=== PATIENT | female | born 1960 | race Caucasian/White ===

== ENCOUNTER 2019-05-07 10:40 | Inpatient (IN) ==
[2019-05-07] MEDS ORDERED: SODIUM CHLORIDE 0.9% 1000ML 1,000 ML IV ONE (11:14)
[2019-05-07] MEDS ORDERED: ALBUT/IPRATROP 3MG/0.5MG NEB 3 ML VIAL NEB STA (11:14)
[2019-05-07] MEDS ORDERED: cefTRIAXone SODIUM 2,000 MG/70 ML BAG IV STA (11:14)
[2019-05-07] MEDS ORDERED: DOXYCYCLINE HYCLATE 100 MG in DEXTROSE 5% 100 ML IV STA (11:22)
[2019-05-07 11:55] LABS: Basophils # (auto) 0.04 K/uL (0-0.2); Basophils % (auto) 0.2 %; Eosinophils # (auto) 0.27 K/uL (0-0.5); Eosinophils % (auto) 1.6 %; Hematocrit (blood only) 33.7 % (37-47); Hemoglobin 11.4 g/dL (12.0-16.0); Immature Granulocytes # (auto) 0.32 K/uL (0.00-0.02); Immature Granulocytes % (auto) 1.9 %; Lymphocytes # (auto) 2.21 K/uL (1.2-3.4); Lymphocytes % (auto) 13.1 %; Mean Corpuscular Hemoglobin 33.5 pg (25-34); Mean Corpuscular Hgb Conc 33.8 g/dL (32-36); Mean Corpuscular Volume 99.1 fL (80-100); Mean Platelet Volume 9.4 fL (7.4-10.4); Monocytes # (auto) 0.78 K/uL (0.11-0.59); Monocytes % (auto) 4.6 %; Neutrophils # (auto) 13.31 K/uL (1.4-6.5); Neutrophils % (auto) 78.6 %; Platelet Count 361 K/uL (130-400); RDW Coefficient of Variation 14.2 % (11.5-14.5); RDW Standard Deviation 51.3 fL (36.4-46.3); White Blood Count 16.93 K/uL (4.8-10.8)
--- NOTE | 2019-05-07 12:07 | Emergency Department Note ---
History of Present Illness General Chief Complaint: Illness Stated Complaint: SOB,COUGHING MUCUS Source: patient Mode of arrival: ambulatory Limitations: no limitations History of Present Illness Provider Complaint: shortness of breath and cough Onset (ago): week(s) (2) Severity: moderate Consistency/Duration: + constant Relieved By: + nothing Exacerbated By: + lying flat, + exertion, + movement, + coughing and + deep breaths Context: + recent illness and + recent travel Associated symptoms: + denies other symptoms Treatment prior to arrival: oxygen and bronchodilator This 58-year-old female patient presents emergency department today, ambulatory, accompanied by male. Patient states she has been experiencing 2-week long history of dyspnea, cough, decreased energy. She states she was seen by [facility] just prior to arrival and diagnosed with pneumonia. She states she was told the influenza testing was negative. She states she has been short of breath for "quite a while". She is visiting family and is in town from [place]. She denies any fever, and states she did vomit once this morning. She denies any chest pain, abdominal pain, or back pain. She denies any headache, dizziness, nausea, numbness, tingling, weakness, hemoptysis, or other associated symptoms. She was given Solu-Medrol, DuoNeb treatment, and oxygen prior to arrival. She states she has been feeling somewhat better since these medications. She denies any history of similar symptoms. She denies any history of blood clots. Related Data Home oxygen amount: none Home Medications Home Medications Medication Instructions Recorded Confirmed Type Glucosamine Chondroitin Vit D 1 tab PO BID 05/07/19 05/07/19 History loratadine-pseudoephedrine 1 tab PO HS 05/07/19 05/07/19 History [Claritin-D 24 Hour] Allergies Allergy/AdvReac Type Severity Reaction Status Date / Time No Known Allergies Allergy Unverified 05/07/19 11:45 Past Med/Surg History Medical History Allergic rhinitis Social History Preferred Language: Ugandan Feels Safe at Home: Yes Smoking Status: Never smoker Review of Systems A total of 10 systems reviewed and were otherwise negative Physical Exam Vital Signs: Vital Signs - 24 hr 05/07/19 10:48 05/07/19 11:15 05/07/19 12:10 Temperature 36.7 C Temperature Source Oral Pulse Rate 57 L Pulse Rate [Finger ] 55 L Respiratory Rate 22 18 Respiratory Effort / Characteristics Short of Breath Non-Labored Sponta neous Respiratory Depth Respiratory Patter n Blood Pressure 198/119 H Blood Pressure [Le ft Arm] Blood Pressure Sulema n 145 Blood Pressure Sulema n [Left Arm] Blood Pressure Pos ition Sitting Blood Pressure Pos ition [Left Arm] Pulse Oximetry 84 L 97 92 Oxygen Delivery Me thod Room Air Nebulizer Nasal Cannula Oxygen Flow Rate 2 Sepsis Recent Feve r Within 48 Hours No Sepsis New/Unexpla ined Change in Men sindy Status No Sepsis Action Take n by Nursing No Action Required 05/07/19 12:41 Temperature Temperature Source Pulse Rate Pulse Rate [Finger ] 60 Respiratory Rate 20 Respiratory Effort / Characteristics Non-Labored Sponta neous Respiratory Depth Normal Respiratory Patter n Regular Blood Pressure Blood Pressure [Le ft Arm] 182/96 H Blood Pressure Sulema n Blood Pressure Sulema n [Left Arm] 124 Blood Pressure Pos ition Blood Pressure Pos ition [Left Arm] Sitting Pulse Oximetry 93 Oxygen Delivery Me thod Nasal Cannula Oxygen Flow Rate 2 Sepsis Recent Feve r Within 48 Hours Sepsis New/Unexpla ined Change in Men sindy Status Sepsis Action Take n by Nursing Physical Exam: VITALS: Vitals are noted on the nurse's note and reviewed by myself. O2 saturation 84%. Patient was hypertensive and mildly bradycardic. GENERAL: This is a 58-year-old white female, in no acute distress, nond iaphoretic, well-developed well-nourished. SKIN: The skin was without rashes, erythema, edema, or bruising. There is no tenting of the skin. Capillary refill less than 2 seconds. HEAD: Normocephalic atraumatic. EARS: External auditory canals clear, tympanic membranes pearly lyon without erythema or effusion bilaterally. EYES: Pupils equal round and reactive to light and accommodation. Conjunctivae without injection, sclerae without icterus. NOSE: Patent, turbinates without inflammation or discharge. No sinus tenderness. MOUTH: Mucous membranes moist. Tonsils are not enlarged. Pharynx without erythema or exudate. Uvula midline. Airway patent. Tongue does not deviate. NECK: Supple without nuchal rigidity. No lymphadenopathy. HEART: Regular rate and rhythm without murmurs gallops or rubs. LUNGS: Diffuse wheezing and rhonchi throughout. Breath sounds are mildly diminished throughout. No retractions or accessory muscle use. ABDOMEN: Positive bowel sounds x 4. Normal tympanic percussion. Soft, nontender, without masses or organomegaly. Brown sign negative. No guarding or rebound tenderness. MUSCULOSKELETAL: No muscle atrophy, erythema, or edema noted. Full range of motion without joint tenderness in all extremities. No tenderness to palpation. Negative Homans sign bilaterally. Normal gait. Strength 5/5 throughout. NEURO: Patient was alert and oriented to person place and time. Normal sensation to light and sharp touch. No focal neurological deficits. Course The patient was seen and evaluated as above. Previous medical records reviewed. IV access obtained, labs drawn. Patient medicated with IV fluids, DuoNeb treatment, doxycycline, and ceftriaxone. Labs reviewed by myself. Patient was reassessed. Breath sounds remain diminished with diffuse wheezing. I discussed the findings of labs and recommendation for admission with the patient at bedside. The patient was agreeable. I discussed the case with the [facility] hospitalist team. They did agree to see and evaluate the patient for admission. CT imaging performed and reviewed by myself and radiologist as above. Please see hospitalist dictation regarding ongoing management care of this patient. Administered Medications Ioversol (Optiray 320 125ml) 108 ml IV ONCE PRN PRN Reason: Interaction Checking Stop: 05/11/19 12:53 Last Admin: 05/07/19 12:54 Dose: 108 ml Documented by: [id number] Discontinued Medications Albuterol (Duoneb) 3 ml NEB NOW STA Stop: 05/07/19 11:15 Last Admin: 05/07/19 12:07 Dose: 3 ml Documented by: [id number] Sodium Chloride (Nss 1000ml) 1,000 mls @ 999 mls/hr IV .Q1H1M ONE Stop: 05/07/19 12:14 Last Admin: 05/07/19 13:07 Dose: 999 mls/hr Documented by: [id number] Ceftriaxone Sodium (Rocephin) 2,000 mg in 70 mls @ 140 mls/hr IV NOW STA Stop: 05/07/19 11:43 Last Admin: 05/07/19 13:07 Dose: 140 mls/hr Documented by: [id number] Doxycycline Hyclate 100 mg/ (Dextrose) 110 mls @ 50 mls/hr IV NOW STA Stop: 05/07/19 13:33 Last Admin: 05/07/19 13:07 Dose: 50 mls/hr Documented by: [id number] Medical Decision Making Differential Diagnosis + acute exacerbation of chronic obstructive airways disease, + congestive heart failure, + community acquired pneumonia, + asthma with exacerbation, + pulmonary embolism, + COPD, + bronchitis, + pneumothorax, + pneumonia, + pleural effusion, + CHF, + ACS and + aspiration Medical Records 2 view chest x-ray report reviewed by teleradiology specialists from [facility]: Scattered chronic appearing interstitial pulmonary markings are present within the chest. There is probable coexistent infiltrative density at the left ila hilar and left lower chest as well as a similar process at the right lower chest. Findings concerning for multifocal pneumonitis. Heart size is normal. No effusion or pneumothorax. Impression: Multifocal inflammatory interstitial infiltrate suspected. Follow- up in 3 weeks recommended to document improvement and rule out any underlying nodularity at the left mid and upper lung. Radiologist: Ronn Lipscomb M.D. [phone] Home Medications Current Medication List: was personally reviewed by pa Laboratory Data Attestation: I reviewed the patient's lab results. Leukocytosis of 16,000. No anemia or thrombocytopenia. Renal, hepatic function and electrolytes without significant abnormality. Lactate 1.4. [place] screen negative. Influenza PCR negative. Result diagrams: 05/07/19 11:45 05/07/19 11:45 Lab Results 05/07/19 05/07/19 05/07/19 Range/Units 11:45 11:45 11:45 WBC 16.93 H (4.8-10.8) K/uL RBC 3.40 L (4.2-5.4) M/uL Hgb 11.4 L (12.0-16.0) g/dL Hct 33.7 L (37-47) % MCV 99.1 (80-100) fL MCH 33.5 (25-34) pg MCHC 33.8 (32-36) g/dL RDW Std Deviation 51.3 H (36.4-46.3) fL RDW Coeff of Em 14.2 (11.5-14.5) % Plt Count 361 (130-400) K/uL MPV 9.4 (7.4-10.4) fL Immature Gran % (Auto) 1.9 % Neut % (Auto) 78.6 % Lymph % (Auto) 13.1 % [place] % (Auto) 4.6 % Eos % (Auto) 1.6 % Baso % (Auto) 0.2 % Immature Gran # (Auto) 0.32 H (0.00-0.02) K/uL Neut # (Auto) 13.31 H (1.4-6.5) K/uL Lymph # (Auto) 2.21 (1.2-3.4) K/uL [place] # (Auto) 0.78 H (0.11-0.59) K/uL Eos # (Auto) 0.27 (0-0.5) K/uL Baso # (Auto) 0.04 (0-0.2) K/uL Sodium 135 L (136-145) mmol/L Potassium 3.5 (3.5-5.1) mmol/L Chloride 99 (98-107) mmol/L Carbon Dioxide 29 (21-32) mmol/L Anion Gap 7.0 (3-11) BUN 13 (7-18) mg/dl Creatinine 1.18 (0.6-1.2) mg/dl Est Cr Clr Drug Dosing 65.7 ml/min Est GFR ( Amer) 58.1 Est GFR (Non-Af Amer) 50.1 BUN/Creatinine Ratio 10.6 (10-20) Glucose 112 H (70-99) mg/dl Lactate 1.4 (0.4-2.0) mmol/L Calcium 9.3 (8.5-10.1) mg/dl Magnesium 2.5 H (1.8-2.4) mg/dl Total Bilirubin 0.7 (0.2-1) mg/dl AST 30 (15-37) U/L ALT 23 (12-78) U/L Alkaline Phosphatase 96 (45-117) U/L Troponin I < 0.015 (0-0.045) ng/ml Total Protein 9.0 H (6.4-8.2) gm/dl Albumin 4.6 (3.4-5.0) gm/dl Globulin 4.4 H (2.5-4.0) gm/dl Albumin/Globulin Ratio 1.1 (0.9-2) Urine Test (Negative) Monoscreen (Negative) Influenza Type A (PCR) (Neg) Influenza Type B (PCR) (Neg) 05/07/19 05/07/19 05/07/19 Range/Units 11:45 12:30 13:15 WBC (4.8-10.8) K/uL RBC (4.2-5.4) M/uL Hgb (12.0-16.0) g/dL Hct (37-47) % MCV (80-100) fL MCH (25-34) pg MCHC (32-36) g/dL RDW Std Deviation (36.4-46.3) fL RDW Coeff of Em (11.5-14.5) % Plt Count (130-400) K/uL MPV (7.4-10.4) fL Immature Gran % (Auto) % Neut % (Auto) % Lymph % (Auto) % [place] % (Auto) % Eos % (Auto) % Baso % (Auto) % Immature Gran # (Auto) (0.00-0.02) K/uL Neut # (Auto) (1.4-6.5) K/uL Lymph # (Auto) (1.2-3.4) K/uL [place] # (Auto) (0.11-0.59) K/uL Eos # (Auto) (0-0.5) K/uL Baso # (Auto) (0-0.2) K/uL Sodium (136-145) mmol/L Potassium (3.5-5.1) mmol/L Chloride (98-107) mmol/L Carbon Dioxide (21-32) mmol/L Anion Gap (3-11) BUN (7-18) mg/dl Creatinine (0.6-1.2) mg/dl Est Cr Clr Drug Dosing ml/min Est GFR ( Amer) Est GFR (Non-Af Amer) BUN/Creatinine Ratio (10-20) Glucose (70-99) mg/dl Lactate (0.4-2.0) mmol/L Calcium (8.5-10.1) mg/dl Magnesium (1.8-2.4) mg/dl Total Bilirubin (0.2-1) mg/dl AST (15-37) U/L ALT (12-78) U/L Alkaline Phosphatase (45-117) U/L Troponin I (0-0.045) ng/ml Total Protein (6.4-8.2) gm/dl Albumin (3.4-5.0) gm/dl Globulin (2.5-4.0) gm/dl Albumin/Globulin Ratio (0.9-2) Urine Test Negative (Negative) Monoscreen Negative (Negative) Influenza Type A (PCR) Neg for Influ A (Neg) Influenza Type B (PCR) Neg for Influ B (Neg) Imaging Data Radiologist's Impression: CT ANGIOGRAPHY OF THE CHEST, PULMONARY EMBOLUS PROTOCOL CLINICAL HISTORY: dyspnea, hypoxia, recent travel COMPARISON STUDY: Chest radiograph April 17, 2019. TECHNIQUE: Following IV administration of 108 mL of Optiray-320, helical axial images of the chest were obtained utilizing the pulmonary embolus protocol. M aximal intensity projections and sagittal and coronal reformats were viewed on an independent 3D workstation. IV contrast was administered without complication. Automated exposure control was utilized for the study. A dose lowering technique was utilized adhering to the principles of ALARA. CT DOSE: 570.84 mGycm FINDINGS: No pulmonary emboli are identified. The heart is mildly enlarged. Th ere is no thoracic aortic dissection. There are multiple mildly enlarged mediastinal and right hilar lymph nodes, including a prevascular node that measures 1.2 cm in short axis diameter and a right paratracheal made that measures 1.5 cm. Right hilar node measures 1.7 cm short-term access diameter T here is no pericardial effusion. No pneumothorax or pleural effusion is noted. There is moderate upper lobe emphysema, most pronounced within the left upper lobe. Bilateral lower lobe multifocal consolidation is noted. There are additional tree-in-bud opacities throughout the lungs. Bronchial wall thickening is noted. Lungs are suboptimally assessed given respiratory motion. There is no cavitation. Bony thorax is unremarkable. Fatty infiltration of the liver is noted. IMPRESSION: 1. No pulmonary emboli identified. 2. Foci of consolidation within the bilateral lower lobes and tree-in-bud n odular opacities within the lungs which favor multifocal bronchopneumonia. A chest CT in 3 months to ensure resolution is recommended. 3. Multiple mildly enlarged mediastinal and right hilar lymph nodes which are probably reactive. These can be assessed on follow-up chest CT to ensure resolution. 4. Moderate upper lobe predominant emphysema. 5. Fatty infiltration of the liver. ACT 112: Negative or not required by law. Electronically signed by: Juni Lopez M.D. 05/07/2019 1:10 PM ECG Data Attestation: I personally reviewed and interpreted this ECG as follows: Prior ECG tracings: not available for review Interpretation: Sinus bradycardia with a ventricular rate of 53bpm. 1st degree AV block. No acute ischemic changes. No T wave inversion. Blood Pressure Blood Pressure Findings: Elevated blood pressure Blood Pressure Disposition: elevated BP felt to be situational MDM Narrative This 58-year-old female patient presents emergency department today due to cough, productive cough, dyspnea, and fatigue. Patient was seen at [facility] and diagnosed with a multifocal pneumonia. She was given Solu-Medrol and a DuoNeb treatment with some improvement in her symptoms. She continues to have wheezing diffusely and is hypoxic on room air in the 80s. The patient did recently travel from [place], so given this history, we did elect to perform CTA of the chest to rule out PE. This was negative. I discussed with the patient that I do recommend admission due to the hypoxia and multifocal pneumonia for IV antibiotics and oxygen therapy. The patient was agreeable. The patient will be admitted to the hospitalist service for further evaluation and management of her symptoms. All questions answered to the patient satisfaction prior to discharge. The chart was completed utilizing [employer] Speech voice recognition software. G rammatical errors, random word insertions, pronoun errors, and incomplete sentences are an occasional consequence of this system due to software limitations, ambient noise, and hardware issues. Any formal questions or concerns about the content, text, or information contained within the body of this dictation should be directly addressed to the provider for clarification. Impression & Plan Community acquired bacterial pneumonia, Hypertension, Acute respiratory failure, Hypoxia Discharge Plan Visit Data Chief Complaint: Illness Stated Complaint: SOB,COUGHING MUCUS ED Provider: Jj Boyd ED Midlevel Provider: Dina Sánchez Discharge Problem: Community acquired bacterial pneumonia, Hypertension, Acute respiratory failure, Hypoxia Patient Disposition: Admitted As Inpatient Condition: Good Forms Stand Alone Forms: My [facility] [employer] [facility] Prescriptions Prescriptions: No Action loratadine-pseudoephedrine [Claritin-D 24 Hour] 10-240 mg Tablet Extended Release 24 Hr 1 tab PO HS RF: 0 Glucosamine Chondroitin Vit D 1 tab PO BID RF: 0 Referrals Referrals: PCP,NO [Primary Care Provider] -
[2019-05-07 12:14] LABS: Alanine Aminotransferase 23 U/L (12-78); Albumin Level 4.6 gm/dl (3.4-5.0); Aspartate Aminotransferase 30 U/L (15-37); BUN Creatinine Ratio 10.6 (10-20); Blood Urea Nitrogen 13 mg/dl (7-18); Calcium 9.3 mg/dl (8.5-10.1); Carbon Dioxide 29 mmol/L (21-32); Chloride 99 mmol/L (98-107); Creatinine Clr Calc Pharmacy 65.7 ml/min; Est GFR (African American) 58.1; Est GFR (Non-African American) 50.1; Glucose 112 mg/dl (70-99); Magnesium 2.5 mg/dl (1.8-2.4); Potassium 3.5 mmol/L (3.5-5.1); Sodium 135 mmol/L (136-145)
[2019-05-07 12:18] LABS: Albumin Globulin Ratio 1.1 (0.9-2); Alkaline Phosphatase 96 U/L (45-117); Bilirubin,Total 0.7 mg/dl (0.2-1); Globulin 4.4 gm/dl (2.5-4.0); Troponin I < 0.015 ng/ml (0-0.045)
[2019-05-07] MEDS ORDERED: OPTIRAY 320 125ml IV PRN (12:54)
--- NOTE | 2019-05-07 13:04 | History & Physical Report ---
Date of Service May 07, 2019 Assessment & Plan (1) Community acquired bacterial pneumonia: Patient will be admitted with multilobar pneumonia. Patient was given Rocephin and doxycycline in the emergency room. We can continue these medications for now. Check sputum culture. Check blood cultures. I do note from [facility] documentation that she was given a dose of Solu-Medrol 125 mg IM in the buttock, we can continue 60mg every 8h with rapid titration depending on response. She continue albuterol nebulizers as needed for ongoing wheeze. (2) Acute respiratory failure: Secondary to acute pneumonia as described above, continue oxygen support as able. (3) Hypertension: Patient denied any history of hypertension although her blood pressure significantly elevated on presentation. I would like to repeat blood pressure now the patient is stable on oxygen, if it remains elevated patient will likely need further work-up and I will possible antihypertensives. I do note that her pulse is low normal. History of Present Illness Primary Care Provider: NO PCP This is a 58-year-old female with a past medical history of seasonal allergies that presents today complaining of shortness of breath and cough. Patient is a decent historian, limited by significant other. Patient tells me that she has been having symptoms for the past 2-3 weeks. She describes this as "the flu ". This is typically a cough that is productive with yellowish sputum. This is accompanied by some myalgias. She has had no fevers. She does get dyspnea with significant exertion. She has had low energy although her appetite is been unaffected. She denies any GI symptoms such as nausea and vomiting, diarrhea or constipation. She has had some postnasal drip as well. Symptoms were constant and slightly worsened. Patient went to [facility] today with the hopes of getting antibiotics. She had a chest x-ray that showed multi lobar infiltrates and recommendation was to present to the emergency room for further evaluation. Emergency room evaluation, patient had an O2 sat of 84% on room air but is much improved on 2 L. She remains afebrile. Of note, the patient's blood pressure was 198/119. Patient denies any history of hypertension or other cardiac issues. In fact, she denies any medical history outside of some chronic sinus issues. Allergies Allergy/AdvReac Type Severity Reaction Status Date / Time No Known Allergies Allergy Unverified 05/07/19 11:45 Home Medications Home Medications Medication Instructions Recorded Confirmed Type Glucosamine Chondroitin Vit D 1 tab PO BID 05/07/19 05/07/19 History loratadine-pseudoephedrine 1 tab PO HS 05/07/19 05/07/19 History [Claritin-D 24 Hour] Past Med/Surg History Social History Preferred Language: Citizen Of [place] Feels Safe at Home: Yes Smoking Status: Never smoker Review of Systems Constitutional: + body aches and + malaise; no fever and no chills Eyes: as per Subjective / HPI Respiratory: + cough, + chest congestion, + change in sputum, + dyspnea, + dyspnea on exertion, + sputum production and + wheezing; no pain on inspiration, no pain with cough and no stopping breathing during sleep Cardiovascular: no chest pain, no chest pain at rest, no chest pain with activity, no dyspnea at rest, no palpitations and no syncope Gastrointestinal: as per Subjective / HPI; no abdominal pain, no nausea and no vomiting Genitourinary: as per Subjective / HPI Musculoskeletal: as per Subjective / HPI Endocrine: as per Subjective / HPI Physical Exam Constitutional: well nourished; no acute distress Eyes: PERRL, conjunctivae normal, anicteric sclerae ENMT: Ears: no hearing impairment Nose: no external nose abnormality Mouth: no lip abnormality Respiratory: able to speak in complete sentences; no respiratory distress, does not use accessory muscles and no dullness to percussion Auscultation: + rhonchi (b/l) and + wheezes Cardiovascular: RRR, no murmur, no edema Heart Sounds: normal S1 and normal S2 Gastrointestinal (Abdomen): normal bowel sounds, soft, nontender, no hepatosplenomegaly Skin: no rashes, warm and dry Psychiatric: A+Ox3, euthymic affect Results & Data Vital Signs (Past 12 Hours) Vital Signs Temp Pulse Pulse Resp BP Pulse Ox 05/07/19 12:10 55 L 18 92 05/07/19 11:15 97 05/07/19 10:48 36.7 C 57 L 22 198/119 H 84 L Laboratory Results Laboratory work reviewed, patient has WBC of 16.9. Blood sugar of 112. EBV was ordered and pending. Influenza a and B screens were also ordered and are pending, I did see from [facility] that these were performed at their facility and were negative. Diagnostic Findings Chest x-ray report and images from [facility] reviewed, patient has some multi lobar a reticular infiltrate, namely left lower lobe, right middle lobe on my review of images. CT angiogram was ordered by emergency room, has not yet been performed at time of this dictation. PG Care Time/CCT Total # of Minutes Spent Total Time Spent with Patient: Total time spent is greater than 50% in coordination of care (as documented) at patient's floor/unit and/or counseling patient:
[2019-05-07 13:08] LABS: Influenza A virus by PCR Neg for Influ A (Neg); Influenza B virus by PCR Neg for Influ B (Neg)
--- NOTE | 2019-05-07 13:12 | CT Scan Report ---
CT ANGIOGRAPHY OF THE CHEST, PULMONARY EMBOLUS PROTOCOL CLINICAL HISTORY: dyspnea, hypoxia, recent travel COMPARISON STUDY: Chest radiograph April 17, 2019. TECHNIQUE: Following IV administration of 108 mL of Optiray-320, helical axial images of the chest we re obtained utilizing the pulmonary embolus protocol. Maximal intensity projections and sagittal and coronal reformats were viewed on an independent 3D workstation. IV contrast was administered withou t complication. Automated exposure control was utilized for the study. A dose lowering technique wa s utilized adhering to the principles of ALARA. CT DOSE: 570.84 mGycm FINDINGS: No pulmonary emboli are identified. The heart is mildly enlarged. There is no thoracic aor tic dissection. There are multiple mildly enlarged mediastinal and right hilar lymph nodes, including a prevascular node that measures 1.2 cm in short axis diameter and a right paratracheal made that me asures 1.5 cm. Right hilar node measures 1.7 cm short-term access diameter There is no pericardial ef fusion. No pneumothorax or pleural effusion is noted. There is moderate upper lobe emphysema, most pr onounced within the left upper lobe. Bilateral lower lobe multifocal consolidation is noted. There ar e additional tree-in-bud opacities throughout the lungs. Bronchial wall thickening is noted. Lungs ar e suboptimally assessed given respiratory motion. There is no cavitation. Bony thorax is unremarkable . Fatty infiltration of the liver is noted. IMPRESSION: 1. No pulmonary emboli identified. 2. Foci of consolidation within the bilateral lower lobes and tree-in-bud nodular opacities within th e lungs which favor multifocal bronchopneumonia. A chest CT in 3 months to ensure resolution is recom mended. 3. Multiple mildly enlarged mediastinal and right hilar lymph nodes which are probably reactive. Thes e can be assessed on follow-up chest CT to ensure resolution. 4. Moderate upper lobe predominant emphysema. 5. Fatty infiltration of the liver. ACT 112: Negative or not required by law. Electronically signed by: Juni Lopez M.D. 05/07/2019 1:10 PM
[2019-05-07 13:29] LABS: Pregnancy Test, Urine Negative (Negative)
[2019-05-07 13:47] LABS: Appearance Urine Cloudy (Clear); Bacteria Urine Automated Negative (Negative); Blood Urine Trace (Negative); Color Urine Dark Yellow; Epithelial Cell Urine Auto >30 /lpf (0-5); Glucose Urine UA Negative (Negative); Ketones Urine Negative (Negative); Leukocyte Esterase Urine Negative (Negative); Nitrite Urine Negative (Negative); Protein Urine 3+ (Negative); Specific Gravity Urine 1.038 (1.000-1.030); Urobilinogen Urine Negative (Negative); pH Urine 6.5 (4.5-7.5)
[2019-05-07 13:53] LABS: Bilirubin Urine Negative (Negative); Ictotest Urine Negative (Negative)
[2019-05-07 14:05] LABS: RBC Urine Automated 0-4 /hpf (0-4)
[2019-05-07 14:06] LABS: Cast Urine Automated 0 /lpf (0-5)
[2019-05-07] MEDS ORDERED: ZOLPIDEM TARTRATE 5 MG TAB PO PRN (14:24)
[2019-05-07] MEDS ORDERED: ALBUTEROL 0.083% NEBU SOLN 3 ML VIAL NEB PRN (14:24)
[2019-05-07] MEDS ORDERED: ONDANSETRON INJ 2 MG/ML 2 ML VIAL IV PRN (14:24)
[2019-05-07] MEDS ORDERED: ACETAMINOPHEN 325 MG TAB PO PRN (14:24)
[2019-05-07] MEDS ORDERED: methylPREDNISolone 125 MG/2 ML VIAL IV SCH (14:24)
[2019-05-07] MEDS ORDERED: cefTRIAXone SODIUM 1,000 MG/50 ML BAG IV STA (14:24)
[2019-05-07] MEDS ORDERED: HydrALAZINE HCL 20 MG/ML VIAL IV STA (14:43)
[2019-05-07] MEDS ORDERED: HydrALAZINE HCL 20 MG/ML VIAL ONE (14:47)
[2019-05-07] MEDS: methylPREDNISolone 60 MG in SYRINGE 0 ML IV SCH ×2 (15:49→21:28)
[2019-05-07] MEDS: DOXYCYCLINE HYCLATE 100 MG in DEXTROSE 5% 100 ML IV SCH (21:28)
[2019-05-08] MEDS: methylPREDNISolone 60 MG in SYRINGE 0 ML IV SCH (06:16)
[2019-05-08] MEDS: DOXYCYCLINE HYCLATE 100 MG in DEXTROSE 5% 100 ML IV SCH ×2 (09:26→22:09)
[2019-05-08] MEDS ORDERED: ALBUT/IPRATROP 3MG/0.5MG NEB 3 ML VIAL NEB ONE (12:30)
[2019-05-08 12:49] LABS: EBV Virus Capsid Ag IgG Ab >750.00 U/mL
[2019-05-08] MEDS: cefTRIAXone SODIUM 2,000 MG in DEXTROSE 5% 50 ML IV SCH (13:48)
--- NOTE | 2019-05-08 17:19 | Hospitalist Progress Note ---
Date of Service May 08, 2019 Assessment & Plan (1) Community acquired bacterial pneumonia: Multilobar pneumonia on CT. Contact with sick grandkids at her daughters home. Continue ceftriaxone and doxycycline. MRSA nose swab negative. Influenza negative. (2) Acute respiratory failure with hypoxia: Using accessory muscles, hypoxia off O2 (84% on room air on admission) Wean O2 as able to aim sats > 94% (3) Wheezing: Will continue on prednisone and duonebs although no formal diagnosis of asthma and may just represent inflammation from PNA. Emphysema also noted on upper lobes of Recommend O/P PFTs approx 6 weeks after discharge. (4) Obstructive sleep apnea: Suspected - family have been urging patient to get tested for a while. reports witnessed apnea, constant snoring, falling asleep during the day in the middle of conversations. Patient reports fatigue all the time, need day time naps, never feeling rested, dreaming throughout the night. Does not take any sleeping pills. Will trial on CPAP overnight here as likely will become more hypoxic at night. (5) Hypertensive urgency: Suspect somewhat due to her daily pseudoephedrine use since the summer. Also acutely raised due to current steroid use. O/P follow up only recommended as now sBP <160. (6) Leucocytosis: Solu-medrol given prior to initial labs in ER therefore suspect not telecommunications sales representative of infection and no need to repeat. (7) Sinus bradycardia: Suspected reflex bradycardia due to pseudoephedrine use. Will repeat troponin to r/o sinus node infarction. (8) Morbid obesity: Suspect some degree of restrictive disease with obesity hypoventilation (9) DVT prophylaxis: Lovenox 40mg SQ daily (10) Discharge planning issues: Likely discharge tomorrow depending on O2 needs Subjective Revisited history with patient and her . She reports progressive deterioration in her breathing over a 2-3 weeks but much faster decline over 2-3 day period. Did not see any health care providers during that time. Since admission she feels her breathing is improving but not close to her baseline. Productive cough ongoing. No hemoptysis. Allergies - none significant but last time she was in [place] in the [place] she noted increased nasal congestion and has been taking Claritin-D since. Smoking Hx - 9 pack-years, quit 30 years ago. Discussed JUJU symptoms - family have been urging patient to get tested for a while. reports witnessed apnea, constant snoring, falling asleep during the day in the middle of conversations. Patient reports fatigue all the time, need day time naps, never feeling rested, dreaming throughout the night. Does not take any sleeping pills. Review of Systems Review of Systems: All systems reviewed & are unremarkable except as noted in HPI & below Physical Exam Constitutional: well developed and + morbidly obese; no acute distress Eyes: PERRL, conjunctivae normal, anicteric sclerae ENMT: external ear and nose normal, oropharynx normal Neck: trachea midline, + short neck and + thick neck Respiratory: + uses accessory muscles and able to speak in complete sentences; no dullness to percussion Auscultation: + diminished lung sounds (bibasal) and + wheezes (R > L); no crackles, no rales and no rhonchi Cardiovascular: RRR, no murmur, no edema Heart Sounds: normal S1 and normal S2 Gastrointestinal (Abdomen): normal bowel sounds, soft, nontender, no hepatosplenomegaly Musculoskeletal: no cyanosis or clubbing, extremities motor strength 5/5 Skin: no rashes, warm and dry Neurologic: moves all extremities and awake; no focal motor deficits and not confused Motor/Sensory: no tremor Psychiatric: A+Ox3, euthymic affect Lymphatic: no cervical or axillary lymphadenopathy Results & Data Vital Signs (Past 12 Hours) Vital Signs Temp Pulse Pulse Pulse Resp BP Pulse Ox 05/08/19 17:08 63 05/08/19 15:40 36.7 C 53 L 20 153/84 H 94 05/08/19 13:21 62 18 94 05/08/19 11:47 36.5 C 56 L 18 149/86 H 95 05/08/19 07:18 36.5 C 55 L 18 158/83 H 94 PG Care Time/CCT Total # of Minutes Spent Total Time Spent with Patient: Total time spent is greater than 50% in coordination of care (as documented) at patient's floor/unit and/or counseling patient: (1) Leucocytosis Leukocytosis type: unspecified Qualified Code(s): D72.829 - Elevated white blood cell count, unspecified
[2019-05-08] MEDS: ALBUT/IPRATROP 3MG/0.5MG NEB 3 ML VIAL NEB SCH (20:12)
[2019-05-09] MEDS: ENOXAPARIN INJ 40 MG/0.4 ML SYR SQ SCH ×2 (00:10→21:42)
[2019-05-09] MEDS: ALBUT/IPRATROP 3MG/0.5MG NEB 3 ML VIAL NEB SCH ×4 (07:05→18:54)
[2019-05-09] MEDS: predniSONE 50 MG TAB PO SCH (07:54)
[2019-05-09] MEDS: DOXYCYCLINE HYCLATE 100 MG in DEXTROSE 5% 100 ML IV SCH ×2 (08:54→21:38)
[2019-05-09] MEDS: cefTRIAXone SODIUM 2,000 MG in DEXTROSE 5% 50 ML IV SCH (13:21)
--- NOTE | 2019-05-09 14:40 | Hospitalist Progress Note ---
Date of Service May 09, 2019 Assessment & Plan (1) Community acquired bacterial pneumonia: Multilobar pneumonia on CT. Contact with sick kigurmeet at her daughters home. Continue ceftriaxone and doxycycline. MRSA nose swab, Influenza, EBV negative. (2) Acute respiratory failure with hypoxia: Present on admission. No longer using accessory muscles but ongoing hypoxia (81% on room air today) Wean O2 as able to aim sats > 94%, BiPAP as tolerated Hypoxia out of proportion of illness therefore will get TSH with reflex T4 in AM, consider echo to assess for PFO. BNP in AM. Overnight pulse ox tonight 2 step tomorrow (3) Wheezing: Continue prednisone 50mg daily and duonebs QID+PRN, no formal diagnosis of asthma/COPD but emphysema noted on upper lobes on CT with 9 pack-year smoking history. Recommend O/P PFTs approx 6 weeks after discharge. (4) Obstructive sleep apnea: Suspected - multiple symptoms but without outpatient sleep study. Does not take any sleeping pills. BiPAP as tolerated 27/12, not for overnight sleep study. (5) Hypertensive urgency: Suspect somewhat due to her daily pseudoephedrine use since the summer. Also acutely raised due to current steroid use. O/P follow up only recommended as now sBP <160. (6) Leucocytosis: Solu-medrol given prior to initial labs in ER therefore suspect not medical customer service representative of infection and no need to repeat. (7) Sinus bradycardia: Suspected driven by hypoxia. Now appears improved. (8) Morbid obesity: Suspect some degree of restrictive disease with obesity hypoventilation (9) DVT prophylaxis: Lovenox 40mg SQ daily (10) Discharge planning issues: Likely discharge tomorrow depending on O2 needs Subjective Patient reports mild improvement in shortness of breath. Continuing dry cough. O2 sats dropped to around 81% when she came off O2 to go to the bathroom. No chest tightness or pain. Minimal improvement after duonebs but she feels possibly some improvement. Managed CPAP for around 2 hours overnight but feeling claustrophobic and causing her to cough a lot. Review of Systems Review of Systems: All systems reviewed & are unremarkable except as noted in HPI & below Physical Exam Constitutional: well developed and + morbidly obese; no acute distress Eyes: PERRL, conjunctivae normal, anicteric sclerae ENMT: external ear and nose normal, oropharynx normal Neck: trachea midline, + short neck and + thick neck Respiratory: able to speak in complete sentences; does not use accessory muscles and no dullness to percussion Auscultation: + diminished lung sounds (bibasal) and + wheezes (R > L); no crackles, no rales and no rhonchi Cardiovascular: RRR, no murmur, no edema Heart Sounds: normal S1 and normal S2 Musculoskeletal: no cyanosis or clubbing, extremities motor strength 5/5 Skin: no rashes, warm and dry Neurologic: moves all extremities and awake; no focal motor deficits and not confused Motor/Sensory: no tremor Psychiatric: A+Ox3, euthymic affect Lymphatic: no cervical or axillary lymphadenopathy Results & Data Vital Signs (Past 12 Hours) Vital Signs Temp Pulse Resp BP Pulse Ox 05/09/19 11:31 80 18 90 05/09/19 07:06 36.4 C L 54 L 22 169/83 H 93 PG Care Time/CCT Total # of Minutes Spent Total Time Spent with Patient: Total time spent is greater than 50% in coordination of care (as documented) at patient's floor/unit and/or counseling patient: (1) Leucocytosis Leukocytosis type: unspecified Qualified Code(s): D72.829 - Elevated white blood cell count, unspecified
[2019-05-10 05:57] LABS: HCO3 ABG 33 mmol/L (19-24); Oxygen Saturation ABG 87.2 % (90-95); PCO2 ABG 48 mmHg (35-46); PO2 ABG 50 mm/Hg (80-95); pH ABG 7.46 (7.35-7.45)
[2019-05-10 05:59] LABS: Allen Test Pos (Pos)
[2019-05-10 06:01] LABS: Hematocrit (blood only) 32.8 % (37-47); Hemoglobin 10.6 g/dL (12.0-16.0); Mean Corpuscular Hemoglobin 32.7 pg (25-34); Mean Corpuscular Hgb Conc 32.3 g/dL (32-36); Mean Corpuscular Volume 101.2 fL (80-100); Mean Platelet Volume 9.6 fL (7.4-10.4); Platelet Count 348 K/uL (130-400); RDW Coefficient of Variation 14.7 % (11.5-14.5); RDW Standard Deviation 53.8 fL (36.4-46.3); Red Blood Count 3.24 M/uL (4.2-5.4); White Blood Count 22.63 K/uL (4.8-10.8)
[2019-05-10 06:17] LABS: Basophils # (auto) 0.03 K/uL (0-0.2); Basophils % (auto) 0.1 %; Eosinophils # (auto) 0.02 K/uL (0-0.5); Eosinophils % (auto) 0.1 %; Immature Granulocytes # (auto) 1.17 K/uL (0.00-0.02); Immature Granulocytes % (auto) 5.2 %; Lymphocytes # (auto) 4.36 K/uL (1.2-3.4); Lymphocytes % (auto) 19.3 %; Monocytes # (auto) 1.29 K/uL (0.11-0.59); Monocytes % (auto) 5.7 %; Neutrophils # (auto) 15.76 K/uL (1.4-6.5); Neutrophils % (auto) 69.6 %
[2019-05-10 06:19] LABS: BUN Creatinine Ratio 18.9 (10-20); Calcium 8.4 mg/dl (8.5-10.1); Creatinine Clr Calc Pharmacy 74.6 ml/min; Est GFR (African American) 67.6; Est GFR (Non-African American) 58.4; Potassium 3.4 mmol/L (3.5-5.1)
[2019-05-10 06:30] LABS: Thyroid Stimulating Hormone 74.8 uIu/ml (0.300-4.500)
[2019-05-10 06:43] LABS: T4 Free Thyroxine 0.2 ng/dl (0.8-1.6)
[2019-05-10] MEDS: ALBUT/IPRATROP 3MG/0.5MG NEB 3 ML VIAL NEB SCH ×4 (07:18→19:03)
[2019-05-10] MEDS: predniSONE 50 MG TAB PO SCH (08:20)
[2019-05-10] MEDS: DOXYCYCLINE HYCLATE 100 MG in DEXTROSE 5% 100 ML IV SCH ×2 (08:20→19:56)
[2019-05-10] MEDS ORDERED: LEVOTHYROXINE SODIUM 200 MCG in SYRINGE 0 ML IV SCH (09:30)
--- NOTE | 2019-05-10 09:42 | Ultrasound Report ---
US thyroid CLINICAL HISTORY: 58 years-old Female with new onset hypothyroidism. COMPARISON: CTA of the chest 05/07/2019 TECHNIQUE: Multiple real time sonographic images of the thyroid were obtained accessing lyon scale ap pearance and color doppler flow. FINDINGS: Limited exam secondary to patient motion. MEASUREMENTS: Right lobe: 3.1 x 2.1 x 1.4 cm Left lobe: 1.9 x 1.3 x 2.0 cm Isthmus: 0.4 cm PARENCHYMA: The thyroid parenchymal echotexture is diffusely heterogeneous. NODULES: No discrete nodules are appreciated. IMPRESSION: Diffusely heterogeneous appearance of the thyroid parenchyma without definite thyroid nod ule identified. ACT 112: Negative or not required by law. The above report was generated using voice recognition software. It may contain grammatical, syntax o r spelling errors. Electronically signed by: Rip Swanson M.D. 05/10/2019 9:41 AM
[2019-05-10] MEDS: cefTRIAXone SODIUM 2,000 MG in DEXTROSE 5% 50 ML IV SCH (13:23)
--- NOTE | 2019-05-10 17:31 | Hospitalist Progress Note ---
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 Cortisol unremarkable. Despite score patient appears relatively stable. Transferred to med/tele to assess for potential ongoing bradycardia. Levothyroxine 200 mcg IV given in AM. Will continue on 100 mcg PO daily. 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 (2) Community acquired bacterial pneumonia: Multilobar pneumonia on CT. Continue ceftriaxone and doxycycline pending improvement in hypoxia. MRSA nose swab, Influenza, EBV negative. (3) Acute respiratory failure with hypoxia: Present on admission. No longer using accessory muscles but ongoing hypoxia. Suspect hypothyroidism contributing with myxedema coma. Wean O2 as able to aim sats > 94%, BiPAP as tolerated Small PFO suspect minimal contribution. Overnight pulse ox last night - no longer relevant given new diagnosis. Will defer two step until hypothyroidism treated for 1-2 days. (4) Wheezing: Continue prednisone 50mg daily (total course 5 days of steroids) and duonebs QID+PRN, no formal diagnosis of asthma/COPD but emphysema noted on upper lobes on CT with 9 pack-year smoking history. Recommend O/P PFTs approx 6 weeks after discharge. (5) Obstructive sleep apnea: Suspected - multiple symptoms but without outpatient sleep study. Does not take any sleeping pills. BiPAP as tolerated 27/12. (6) Hypertensive urgency: Suspect somewhat due to her daily pseudoephedrine use since the summer. Steroids possibly also contributing. O/P follow up only recommended as now sBP <160. (7) Leucocytosis: Suspect increased due to steroid use. Will continue to trend. (8) Sinus bradycardia: Makes much more sense now diagnosed with myxedema coma (9) Morbid obesity: Suspect some degree of restrictive disease with obesity hypoventilation. Incentive spirometry Q1HWA. (10) DVT prophylaxis: Lovenox 40mg SQ daily (11) Discharge planning issues: Suspect discharge in 1-2 days depending on hypoxia. Subjective No real improvement overnight. Overnight pulse oximetry study performed. Out in the chair when seen this morning and she reports she is trying. Noted her bowels have been a problem with constipation for the last 2 weeks therefore suspect. No nausea, vomiting or abdominal pain. Wheezing and coughing continuing, similar to prior days. Still very fatigued. Review of Systems Review of Systems: All systems reviewed & are unremarkable except as noted in HPI & below Physical Exam Constitutional: well developed and + morbidly obese; no acute distress Eyes: + anicteric sclerae; normal pupil size and no nystagmus ENMT: external ear and nose normal, oropharynx normal Neck: trachea midline, + short neck and + thick neck Respiratory: normal respiratory effort and able to speak in complete sentences; no respiratory distress, does not use accessory muscles and no dullness to percussion Auscultation: + diminished lung sounds (bibasal) and + wheezes (R > L, no significant improvement); no crackles, no rales and no rhonchi Cardiovascular: RRR, no murmur, no edema Heart Sounds: normal S1 and normal S2 Gastrointestinal (Abdomen): Inspection/Auscultation: abdomen normal to inspection and + hypoactive bowel sounds; abdomen not distended Percussion/Palpation: abdomen soft; abdomen nontender, no guarding and abdomen not rigid Musculoskeletal: no cyanosis or clubbing, extremities motor strength 5/5 Skin: no rashes, warm and dry Neurologic: moves all extremities and awake; no focal motor deficits and not confused Motor/Sensory: no tremor Psychiatric: A+Ox3, euthymic affect Results & Data Vital Signs (Past 12 Hours) Vital Signs Temp Pulse Pulse Resp BP BP Pulse Ox 05/10/19 16:52 58 L 05/10/19 15:27 86 16 95 05/10/19 14:52 36.4 C L 57 L 18 159/79 H 91 05/10/19 12:26 55 L 180/93 H 178/90 H 95 05/10/19 11:18 58 L 18 91 05/10/19 11:00 36.7 C 54 L 18 161/96 H 05/10/19 07:20 58 L 18 96 05/10/19 06:41 36.4 C L 57 L 19 128/75 92 PG Care Time/CCT Total # of Minutes Spent Total Time Spent with Patient: Total time spent is greater than 50% in coordination of care (as documented) at patient's floor/unit and/or counseling patient: (1) Leucocytosis Leukocytosis type: unspecified Qualified Code(s): D72.829 - Elevated white blood cell count, unspecified
[2019-05-10] MEDS: ENOXAPARIN INJ 40 MG/0.4 ML SYR SQ SCH (19:56)
[2019-05-10] MEDS ORDERED: DOXYCYCLINE HYCLATE 100 MG CAP PO SCH (21:00)
[2019-05-10] MEDS: DOCUSATE SODIUM/SENNA 50/8.6MG TAB PO SCH (21:15)
[2019-05-11] MEDS ORDERED: LEVOTHYROXINE SODIUM 100 MCG TABLET PO SCH (06:30)
[2019-05-11] MEDS ORDERED: LEVOTHYROXINE SODIUM 100 MCG in SYRINGE 0 ML IV ONE ×2 (07:00→09:00)
[2019-05-11] MEDS: ALBUT/IPRATROP 3MG/0.5MG NEB 3 ML VIAL NEB SCH ×2 (07:03→11:18)
[2019-05-11 07:37] LABS: Basophils # (auto) 0.04 K/uL (0-0.2); Basophils % (auto) 0.2 %; Eosinophils # (auto) 0.04 K/uL (0-0.5); Eosinophils % (auto) 0.2 %; Hematocrit (blood only) 33.6 % (37-47); Hemoglobin 10.9 g/dL (12.0-16.0); Immature Granulocytes # (auto) 1.08 K/uL (0.00-0.02); Lymphocytes # (auto) 4.23 K/uL (1.2-3.4); Lymphocytes % (auto) 19.6 %; Mean Corpuscular Hgb Conc 32.4 g/dL (32-36); Mean Corpuscular Volume 101.8 fL (80-100); Mean Platelet Volume 9.6 fL (7.4-10.4); Monocytes # (auto) 1.47 K/uL (0.11-0.59); Monocytes % (auto) 6.8 %; Neutrophils % (auto) 68.2 %; Platelet Count 329 K/uL (130-400); RDW Coefficient of Variation 14.6 % (11.5-14.5); White Blood Count 21.56 K/uL (4.8-10.8)
[2019-05-11] MEDS: predniSONE 50 MG TAB PO SCH (07:47)
[2019-05-11] MEDS: DOCUSATE SODIUM/SENNA 50/8.6MG TAB PO SCH ×2 (07:47→21:15)
[2019-05-11] MEDS: DOXYCYCLINE HYCLATE 100 MG in DEXTROSE 5% 100 ML IV SCH (07:53)
[2019-05-11 08:05] LABS: BUN Creatinine Ratio 18.2 (10-20); Calcium 8.8 mg/dl (8.5-10.1); Creatinine Clr Calc Pharmacy 78.6 ml/min; Est GFR (African American) 71.8; Est GFR (Non-African American) 61.9; Magnesium 2.4 mg/dl (1.8-2.4); Potassium 3.4 mmol/L (3.5-5.1)
[2019-05-11] MEDS ORDERED: POTASSIUM CHLORIDE 20 MEQ TABCR PO STA (10:11)
[2019-05-11] MEDS: cefTRIAXone SODIUM 2,000 MG in DEXTROSE 5% 50 ML IV SCH (12:41)
[2019-05-11] MEDS: ENOXAPARIN INJ 40 MG/0.4 ML SYR SQ SCH (21:15)
[2019-05-11] MEDS: DOXYCYCLINE HYCLATE 100 MG CAP PO SCH (21:15)
--- NOTE | 2019-05-11 21:38 | Hospitalist Progress Note ---
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 Cortisol WNL, however already on steroids. Will monitor for hypotension once off prednisone tomorrow. Despite score patient stable. Levothyroxine 200 mcg IV 05/10, 100 mcg 05/11, will repeat IV dose tomorrow as she is having reduced gastric motility. 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 (2) Community acquired bacterial pneumonia: Multilobar pneumonia on CT. Will switch ceftriaxone to Augmentin in anticipation of discharge. Continue doxycycline for 2 further days. MRSA nose swab, Influenza, EBV negative. (3) Acute respiratory failure with hypoxia: Present on admission. No longer using accessory muscles but ongoing hypoxia. Suspect pneumonia precipitated myxedema coma causing diffuse inflamma tion picture with wheezing. Wean O2 as able to aim sats > 94%, BiPAP as tolerated Small PFO - minimal contribution, no further follow up required for this unless ongoing hypoxia once hypothyroidism fully treated. Overnight pulse ox last night - no longer relevant given new diagnosis. 2 step tomorrow with anticipated discharge. (4) Wheezing: Suspected due to increased connective tissue deposits and edema of lungs from hypothyroidism. Given emphysema noted on upper lobes on CT with 9 pack-year smoking history I would still recommend O/P PFTs approx 6 weeks after discharge. (5) Obstructive sleep apnea: Suspected - multiple symptoms but without outpatient sleep study. Does not take any sleeping pills. BiPAP as tolerated 27/12. Suspect worse due to myxedema crisis and would recommend deferring sleep study until her hypothyroidism is fully treated and TSH in normal range. (6) Hypertensive urgency: Suspect somewhat due to her daily pseudoephedrine use since the summer. Steroids possibly also contributing. O/P follow up only recommended as now sBP <160. (7) Leucocytosis: Secondary to steroids (8) Sinus bradycardia: Secondary to hypothyroidism/myxedema crisis (9) Morbid obesity: Suspect some degree of restrictive disease with obesity hypoventilation. Incentive spirometry Q1HWA. Hopefully levothyroxine will help with her weight loss. (10) DVT prophylaxis: Lovenox 40mg SQ daily (11) Discharge planning issues: Expected discharge tomorrow. 2 step ordered if still on O2 as may need oxygen on discharge. Subjective Patient feeling relatively large improvement from previous day after starting IV levothyroxine. Still has some shortness of breath on exertion and requiring oxygen. No cough. Bowels not yet moved. With hindsight she has a lot of hypothyroid symptoms going back months and years. +ve fatigue, coarse hair, nonpitting edema, dry skin, decreased sweating, mild anemia, HTN (increased peripheral vascular resistance), weight gain, constipation Review of Systems Review of Systems: All systems reviewed & are unremarkable except as noted in HPI & below Physical Exam Constitutional: well developed and + morbidly obese; no acute distress Eyes: + anicteric sclerae; normal pupil size and no nystagmus ENMT: external ear and nose normal, oropharynx normal Neck: trachea midline, + short neck and + thick neck Thyroid: normal thyroid; no thyromegaly, thyroid symmetrical, no thyroid mass and thyroid nontender Respiratory: normal respiratory effort; no respiratory distress Auscultation: + diminished lung sounds (bibasal); no crackles, no rales, no rhonchi and no wheezes (no longer wheezing) Cardiovascular: RRR, no murmur, no edema Heart Sounds: normal S1 and normal S2 Gastrointestinal (Abdomen): Inspection/Auscultation: + hypoactive bowel sounds Percussion/Palpation: abdomen soft; abdomen nontender, no guarding and abdomen not rigid Musculoskeletal: no cyanosis or clubbing, extremities motor strength 5/5 Skin: + dry skin (b/l legs without pretibiral myxedema) Neurologic: moves all extremities and awake; no focal motor deficits and not confused Motor/Sensory: no tremor Psychiatric: A+Ox3, euthymic affect Results & Data Vital Signs (Past 12 Hours) Vital Signs Temp Pulse Pulse Resp BP Pulse Ox 05/11/19 19:40 36.6 C 59 L 18 144/78 H 94 05/11/19 16:00 53 L 05/11/19 15:41 36.6 C 55 L 20 146/83 H 91 05/11/19 11:31 36.5 C 72 20 145/72 H 98 05/11/19 11:19 19 92 PG Care Time/CCT Total # of Minutes Spent Total Time Spent with Patient: Total time spent is greater than 50% in coordination of care (as documented) at patient's floor/unit and/or counseling patient: (1) Leucocytosis Leukocytosis type: unspecified Qualified Code(s): D72.829 - Elevated white blood cell count, unspecified
[2019-05-12] MEDS ORDERED: LEVOTHYROXINE SODIUM 100 MCG TABLET PO SCH (06:30)
[2019-05-12] MEDS ORDERED: LEVOTHYROXINE SODIUM 100 MCG in SYRINGE 0 ML IV SCH (09:00)
[2019-05-12] MEDS: DOCUSATE SODIUM/SENNA 50/8.6MG TAB PO SCH (09:11)
[2019-05-12] MEDS: AMOXICILLIN/CLAVULANATE 875 MG TAB PO SCH ×2 (09:12→16:41)
[2019-05-12] MEDS: DOXYCYCLINE HYCLATE 100 MG CAP PO SCH (09:12)
[2019-05-12 09:36] LABS: BUN Creatinine Ratio 21.4 (10-20); Creatinine Clr Calc Pharmacy 71.9 ml/min; Est GFR (African American) 64.6; Est GFR (Non-African American) 55.8; Potassium 3.5 mmol/L (3.5-5.1)
--- NOTE | 2019-05-12 17:22 | Discharge Summary ---
Date of Service May 12, 2019 Admission HPI Per Admitting Provider This is a 58-year-old female with a past medical history of seasonal allergies that presents today complaining of shortness of breath and cough. Patient is a decent historian, limited by significant other. Patient tells me that she has been having symptoms for the past 2-3 weeks. She describes this as "the flu ". This is typically a cough that is productive with yellowish sputum. This is accompanied by some myalgias. She has had no fevers. She does get dyspnea with significant exertion. She has had low energy although her appetite is been unaffected. She denies any GI symptoms such as nausea and vomiting, diarrhea or constipation. She has had some postnasal drip as well. Symptoms were constant and slightly worsened. Patient went to [facility] today with the hopes of getting antibiotics. She had a chest x-ray that showed multi lobar infiltrates and recommendation was to present to the emergency room for further evaluation. Emergency room evaluation, patient had an O2 sat of 84% on room air but is much improved on 2 L. She remains afebrile. Of note, the patient's blood pressure was 198/119. Patient denies any history of hypertension or other cardiac issues. In fact, she denies any medical history outside of some chronic sinus issues. Discharge Data Allergies Allergy/AdvReac Type Severity Reaction Status Date / Time No Known Allergies Allergy Unverified 05/07/19 11:45 Consultations 05/07/19 12:18 ED Decision to Admit Stat Ordered Studies 05/07/19 12:18 CT angio chest PE protocol Stat 05/10/19 08:19 thyroid Routine Discharge Plan Discharge Items Patient Disposition: Home - Self-Care Reason For Visit: HYPOXIA, PNA Discharge Diagnosis: Myxedema coma/crisis Severe hypothyroidism Multifocal pneumonia Acute hypoxic respiratory failure Condition on Discharge: Fair Activity: Resume your previous activity Lifting: Gradually increase as tolerated Bathing: No limitations Exercise/Sports: Gradually increase as tolerated Non-emergency contact: Primary Care Provider Call non-emergency contact if: you have any medication questions, your symptoms worsen and your temperature is above 101 Follow-up/Referrals: PCP,NO [Primary Care Provider] - Diet: Regular Addtl Attending Provider Instructions: You were admitted to [facility] from May 07 to 2018 due to shortness of breath, fatigue and low oxygen levels. You were diagnosed with multifocal community acquired pneumonia and treated with intravenous now switched to oral antibiotics. Subsequent lab work up was also concerning for myxedema crisis with elevated TSH 74.8, free T4 0.2. You were treated with intravenous levothyroxine and now switched to oral levothyroxine (thyroid hormone). Please establish and follow up with your primary care physician for follow up in the next 2 weeks. Recommendations for your primary care physician: Multifocal pneumonia - recommend repeat CT chest without contrast in approximately 3 months to check for resolution. Hypothyroidism - started on levothyroxine 100 mcg daily. Repeat TSH in approximately 4 weeks. Hypoxia (low oxygen levels) - prescribed 1 litre of oxygen at rest and 3 litres on exertion. Please wean off with your PCP as able. Emphysema - concerning from CT scan and prior smoking use. Recommend lung function tests once thyroid levels are stable and atleast 4 weeks out from this pneumonia episode. Concern for obstructive sleep apnea - recommend sleep study after hypothyroidism adequately treated. Hypertension - stop Claritin-D (ok to take claritin if needed). Started on lisinopril, Cr 1.0 at baseline. Recommend repeat renal profile in 4 weeks. Macrocytic anemia - suspect related to hypothyroidism, B12, folate normal. Recommend repeat blood count (CBC) in approximately 4 weeks Sinus bradycardia (low heart rate) with sinus pauses - suspected secondary to hypothyroidism and myxedema crisis. Recommend holter monitor in approximately 4- 6 weeks. Not associated with syncopal (fainting) episodes but if this occurs will need urgent referral to cardiology. Please return to the ER if your shortness of breath gets suddenly worse. Call the hospital on [phone] and ask for the [facility] if you have any questions Pending Studies at Discharge: No Stand-Alone Forms: My [facility], Smoking Cessation Medications and DC Order Prescriptions: New doxycycline hyclate 100 mg Capsule 100 mg PO BID 1 Days Qty: 3 RF: 0 levothyroxine [Synthroid] 100 mcg Tablet 100 mcg PO DAILYBB 30 Days Qty: 30 RF: 0 amoxicillin-pot clavulanate [Augmentin] 875-125 mg Tablet 1 tab PO BIDM 1 Days Qty: 3 RF: 0 lisinopril 10 mg tablet 10 mg PO DAILY Qty: 30 RF: 0 Continued Glucosamine Chondroitin Vit D 1 tab PO BID RF: 0 Discontinued loratadine-pseudoephedrine [Claritin-D 24 Hour] 10-240 mg Tablet Extended Release 24 Hr 1 tab PO HS RF: 0 Discharge Orders: Discharge Order (Routine); Ordered 05/12/19 Ordered By: Evan Orosco/Other Patient Handouts: Hypothyroidism Myxedema Dc, Thyroid Stimulating Hormone, Free T4 Admission Data Admit Date/Time: 05/07/19 13:10 Attending Provider: Evan Morgan Admit Provider: En Rubio Primary Care Provider: PCP,NO Other Providers: En Rubio Other Interventions: Discharge Summary Assessment (RN) Last Done: 05/12/19 16:46
[2019-05-13] MEDS ORDERED: LEVOTHYROXINE SODIUM 100 MCG TABLET PO SCH (06:30)
== END 2019-05-12 18:11 | disposition home or self-care (01) | DRG 193 ==
LOC: ED 10:40 → 2S 13:10 → SUATTDRO 13:10 → 2S 14:03 → 4W 05-08 15:21 → 2W 05-10 11:02